=== PATIENT | male | born 1980 | race Caucasian/White ===

== ENCOUNTER 2022-12-24 14:26 | Inpatient (IN) ==
[2022-12-24] MEDS ORDERED: IOPAMIDOL 100 ML BOTTLE IV ONE (14:27)
[2022-12-24] MEDS ORDERED: DILTIAZEM 25 MG/5 ML VIAL IV ONE (14:43)
[2022-12-24 14:44] LABS: POC Calcium, Ionized 1.21 (1.16-1.32); POC Creatinine 1.1 (0.6-1.2); POC Potassium 4.8 (3.3-5.1)
[2022-12-24] MEDS ORDERED: 0.9 % SODIUM CHLORIDE 1,000 ML IV ONE (14:44)
[2022-12-24] MEDS ORDERED: ASPIRIN 81 MG TAB.CHEW CHEWED ONE (14:45)
[2022-12-24 15:15] LABS: Basophils # (Auto) 0.03 K/mcL (0.00-0.30); Basophils % (Auto) 0.3 % (0.0-2.0); Eosinophils # (Auto) 0.09 K/mcL (0.00-0.70); Hematocrit 41.7 % (40.1-51.0); Hemoglobin 13.9 g/dL (13.7-17.5); Lymphocytes # (Auto) 2.11 K/mcL (1.50-4.80); Lymphocytes % (Auto) 23.3 % (15.5-49.0); Mean Cell Volume 92.1 fL (80.0-100.0); Mean Corpuscular HGB Conc 33.3 g/dL (31.0-36.0); Monocytes # (Auto) 0.55 K/mcL (0.10-0.90); Monocytes % (Auto) 6.1 % (1.0-12.0); Neutrophils % (Auto) 68.9 % (38.0-78.0); Platelet Count 372 K/mcL (140-440); RBC 4.53 M/mcL (4.63-6.08); Red Cell Distribution Width 13.2 % (11.5-14.5); WBC 9.1 K/mcL (4.5-11.0)
[2022-12-24] MEDS ORDERED: METOPROLOL TARTRATE 5 MG/5 ML VIAL IV ONE (15:26)
[2022-12-24 16:03] LABS: ALT/SGPT 61 U/L (<40); AST/SGOT 35 U/L (<40); Albumin 3.6 gm/dL (3.2-5.2); Albumin/Globulin Ratio 1.6 (1.0-2.3); Alkaline Phosphatase 163 U/L (39-117); Bilirubin,Total 0.5 mg/dL (0.1-1.0); Blood Urea Nitrogen 13 mg/dL (6-20); Calcium 9.2 mg/dL (8.6-10.4); Carbon Dioxide 25 mmol/L (22-30); Chloride 106 mmol/L (96-108); Globulin 2.3 gm/dL (2.2-3.7); Glomerular Filtration Rate 94; Glucose 95 mg/dL (70-105)
[2022-12-24] MEDS ORDERED: METOPROLOL TARTRATE 50 MG TABLET PO ONE (16:54)
[2022-12-24] MEDS ORDERED: FUROSEMIDE 20 MG/2 ML VIAL IV ONE (17:42)
[2022-12-24] MEDS ORDERED: KETOROLAC 15 MG/ML VIAL IV ONE (19:18)
[2022-12-24] MEDS ORDERED: LACTULOSE 20 GM/30 ML ORAL.SOL PO PRN (20:10)
[2022-12-24] MEDS ORDERED: IPRATROPIUM/ALBUTEROL 3 ML AMPUL.NEB NEB PRN (20:10)
[2022-12-24] MEDS ORDERED: guaiFENesin/DEXTROMETHORPHAN 5ML UD CUP PO PRN (20:10)
[2022-12-24] MEDS ORDERED: SENNOSIDES 1 TABLET PO PRN (20:10)
[2022-12-24] MEDS ORDERED: ONDANSETRON 4 MG/2 ML VIAL IV PRN (20:10)
[2022-12-24] MEDS: DOCUSATE SODIUM 100 MG CAPSULE PO SCH (20:54)
[2022-12-24] MEDS: METOPROLOL TARTRATE 5 MG/5 ML VIAL IV PRN (20:55)
[2022-12-24] MEDS: APIXABAN 5 MG TABLET PO SCH (20:55)
[2022-12-24] MEDS: 0.9 % SODIUM CHLORIDE 10 ML SYRINGE IV SCH (20:55)
[2022-12-24] MEDS: ACETAMINOPHEN 325 MG TABLET PO PRN (21:35)
[2022-12-25] MEDS: METOPROLOL TARTRATE 5 MG/5 ML VIAL IV PRN ×2 (01:05→04:16)
[2022-12-25] MEDS: 0.9 % SODIUM CHLORIDE 10 ML SYRINGE IV SCH ×3 (04:18→21:05)
[2022-12-25] MEDS ORDERED: FUROSEMIDE 40 MG/4 ML VIAL IV ONE (05:32)
[2022-12-25] MEDS: FUROSEMIDE 40 MG/4 ML VIAL IV SCH ×3 (05:35→16:12)
[2022-12-25] MEDS ORDERED: CARVEDILOL 6.25 MG TABLET ONE (05:38)
[2022-12-25] MEDS ORDERED: POTASSIUM CHLORIDE 20 MEQ PACKET ONE (05:39)
[2022-12-25] MEDS ORDERED: POTASSIUM CHLORIDE 20 MEQ TABLET PO ONE (05:40)
[2022-12-25] MEDS: POTASSIUM CHLORIDE 20 MEQ TABLET PO SCH ×2 (05:41→06:43)
[2022-12-25] MEDS ORDERED: CARVEDILOL 6.25 MG TABLET PO ONE (05:48)
[2022-12-25 05:49] LABS: Basophils # (Auto) 0.07 K/mcL (0.00-0.30); Basophils % (Auto) 0.5 % (0.0-2.0); Eosinophils % (Auto) 0.7 % (0.0-7.0); Hematocrit 45.3 % (40.1-51.0); Hemoglobin 14.6 g/dL (13.7-17.5); Lymphocytes # (Auto) 2.35 K/mcL (1.50-4.80); Lymphocytes % (Auto) 16.7 % (15.5-49.0); Mean Corpuscular HGB Conc 32.2 g/dL (31.0-36.0); Mean Platelet Volume 10.1 fL (8.8-12.5); Monocytes # (Auto) 0.68 K/mcL (0.10-0.90); Monocytes % (Auto) 4.8 % (1.0-12.0); Neutrophils % (Auto) 76.9 % (38.0-78.0); Platelet Count 406 K/mcL (140-440); RBC 4.77 M/mcL (4.63-6.08); Red Cell Distribution Width 13.4 % (11.5-14.5); WBC 14.1 K/mcL (4.5-11.0)
[2022-12-25 06:16] LABS: ALT/SGPT 53 U/L (<40); AST/SGOT 32 U/L (<40); Albumin 3.5 gm/dL (3.2-5.2); Albumin/Globulin Ratio 1.5 (1.0-2.3); Alkaline Phosphatase 160 U/L (39-117); Bilirubin,Total 0.5 mg/dL (0.1-1.0); Blood Urea Nitrogen 19 mg/dL (6-20); Calcium 9.1 mg/dL (8.6-10.4); Carbon Dioxide 24 mmol/L (22-30); Chloride 109 mmol/L (96-108); Globulin 2.4 gm/dL (2.2-3.7); Glomerular Filtration Rate 75; Glucose 112 mg/dL (70-105)
[2022-12-25] MEDS ORDERED: CARVEDILOL 12.5 MG TABLET PO SCH (08:00)
[2022-12-25] MEDS: LISINOPRIL 5 MG TABLET PO SCH (09:14)
[2022-12-25] MEDS: AZITHROMYCIN 250 MG TABLET PO SCH (09:14)
[2022-12-25] MEDS: APIXABAN 5 MG TABLET PO SCH ×2 (09:14→21:05)
[2022-12-25] MEDS: DOCUSATE SODIUM 100 MG CAPSULE PO SCH ×2 (09:14→20:16)
[2022-12-25] MEDS: METOPROLOL SUCCINATE 50 MG TAB.XL.24H PO SCH (11:17)
[2022-12-25] MEDS: ETHYL ALCOHOL 30 ML ORAL.SOL PO PRN ×3 (11:20→19:38)
[2022-12-25] MEDS: NICOTINE 21 MG PATCH TOPICAL SCH (11:21)
[2022-12-25 13:10] LABS: Amphetamine Screen,Urine Suspect positive; Barbiturate Screen,Urine None detected; Benzodiazepines Screen,Urine None detected; Cannabinoid Screen,Urine Suspect Positive; Cocaine Screen,Urine None detected; Opiate Screen,Urine None detected; Oxycodone, Urine Screen None detected; Phencyclidine Screen,Urine None detected
[2022-12-25] MEDS ORDERED: METOPROLOL TARTRATE 5 MG/5 ML VIAL IV PRN ×2 (14:29→14:30)
[2022-12-25] MEDS: ACETAMINOPHEN 325 MG TABLET PO PRN ×2 (14:38→23:02)
[2022-12-26] MEDS ORDERED: METOPROLOL TARTRATE 5 MG/5 ML VIAL IV PRN (00:06)
[2022-12-26] MEDS ORDERED: METOPROLOL TARTRATE 5 MG/5 ML VIAL IV ONE (00:10)
[2022-12-26] MEDS: 0.9 % SODIUM CHLORIDE 10 ML SYRINGE IV SCH ×3 (05:25→20:14)
[2022-12-26 06:20] LABS: Basophils # (Auto) 0.04 K/mcL (0.00-0.30); Basophils % (Auto) 0.3 % (0.0-2.0); Eosinophils # (Auto) 0.14 K/mcL (0.00-0.70); Eosinophils % (Auto) 1.2 % (0.0-7.0); Hematocrit 41.2 % (40.1-51.0); Hemoglobin 13.4 g/dL (13.7-17.5); Lymphocytes # (Auto) 2.59 K/mcL (1.50-4.80); Lymphocytes % (Auto) 22.4 % (15.5-49.0); Mean Cell Volume 92.8 fL (80.0-100.0); Mean Corpuscular HGB Conc 32.5 g/dL (31.0-36.0); Mean Platelet Volume 10.5 fL (8.8-12.5); Monocytes # (Auto) 0.69 K/mcL (0.10-0.90); Neutrophils % (Auto) 69.8 % (38.0-78.0); Platelet Count 333 K/mcL (140-440); RBC 4.44 M/mcL (4.63-6.08); Red Cell Distribution Width 13.4 % (11.5-14.5); WBC 11.6 K/mcL (4.5-11.0)
[2022-12-26 06:43] LABS: ALT/SGPT 36 U/L (<40); AST/SGOT 26 U/L (<40); Albumin 3.1 gm/dL (3.2-5.2); Albumin/Globulin Ratio 1.4 (1.0-2.3); Alkaline Phosphatase 130 U/L (39-117); Bilirubin,Total 0.5 mg/dL (0.1-1.0); Blood Urea Nitrogen 16 mg/dL (6-20); Calcium 8.4 mg/dL (8.6-10.4); Carbon Dioxide 25 mmol/L (22-30); Chloride 104 mmol/L (96-108); Globulin 2.2 gm/dL (2.2-3.7); Glomerular Filtration Rate 94; Glucose 112 mg/dL (70-105)
[2022-12-26] MEDS: LISINOPRIL 5 MG TABLET PO SCH (08:42)
[2022-12-26] MEDS: APIXABAN 5 MG TABLET PO SCH ×2 (08:42→20:14)
[2022-12-26] MEDS: AZITHROMYCIN 250 MG TABLET PO SCH (08:43)
[2022-12-26] MEDS: METOPROLOL SUCCINATE 50 MG TAB.XL.24H PO SCH (08:44)
[2022-12-26] MEDS: ACETAMINOPHEN 325 MG TABLET PO PRN ×3 (08:45→19:27)
[2022-12-26] MEDS: POTASSIUM CHLORIDE 20 MEQ TABLET PO SCH (08:46)
[2022-12-26] MEDS: NICOTINE 21 MG PATCH TOPICAL SCH (08:47)
[2022-12-26] MEDS: FUROSEMIDE 40 MG/4 ML VIAL IV SCH (08:47)
[2022-12-26] MEDS: DOCUSATE SODIUM 100 MG CAPSULE PO SCH ×2 (08:48→20:14)
[2022-12-26] MEDS: DILTIAZEM 30 MG TABLET PO SCH ×3 (11:53→20:14)
[2022-12-26] MEDS: ETHYL ALCOHOL 30 ML ORAL.SOL PO PRN ×2 (13:28→15:17)
[2022-12-26] MEDS ORDERED: BENZOCAINE ONE 20% 1 SPRAY TOPICAL PRN (15:23)
[2022-12-26] MEDS ORDERED: ETHYL ALCOHOL 30 ML ORAL.SOL PO PRN ×2 (15:30→23:30)
[2022-12-26] MEDS: FUROSEMIDE 40 MG TABLET PO SCH (16:11)
[2022-12-26] MEDS ORDERED: IBUPROFEN 600 MG TABLET PO PRN (19:43)
[2022-12-27] MEDS: ACETAMINOPHEN 325 MG TABLET PO PRN (03:45)
[2022-12-27] MEDS: 0.9 % SODIUM CHLORIDE 10 ML SYRINGE IV SCH ×2 (03:46→05:57)
[2022-12-27 06:10] LABS: Basophils # (Auto) 0.06 K/mcL (0.00-0.30); Basophils % (Auto) 0.5 % (0.0-2.0); Eosinophils # (Auto) 0.22 K/mcL (0.00-0.70); Hematocrit 42.1 % (40.1-51.0); Lymphocytes # (Auto) 3.34 K/mcL (1.50-4.80); Lymphocytes % (Auto) 30.1 % (15.5-49.0); Mean Cell Volume 90.3 fL (80.0-100.0); Mean Corpuscular HGB Conc 33.3 g/dL (31.0-36.0); Mean Platelet Volume 10.5 fL (8.8-12.5); Monocytes # (Auto) 0.81 K/mcL (0.10-0.90); Monocytes % (Auto) 7.3 % (1.0-12.0); Neutrophils % (Auto) 59.7 % (38.0-78.0); Platelet Count 352 K/mcL (140-440); RBC 4.66 M/mcL (4.63-6.08); Red Cell Distribution Width 13.2 % (11.5-14.5); WBC 11.1 K/mcL (4.5-11.0)
[2022-12-27 06:33] LABS: ALT/SGPT 30 U/L (<40); AST/SGOT 14 U/L (<40); Albumin 3.5 gm/dL (3.2-5.2); Albumin/Globulin Ratio 1.5 (1.0-2.3); Alkaline Phosphatase 133 U/L (39-117); Bilirubin,Total 0.5 mg/dL (0.1-1.0); Blood Urea Nitrogen 16 mg/dL (6-20); Carbon Dioxide 27 mmol/L (22-30); Chloride 101 mmol/L (96-108); Globulin 2.3 gm/dL (2.2-3.7); Glomerular Filtration Rate 94; Glucose 101 mg/dL (70-105)
[2022-12-27] MEDS: METOPROLOL SUCCINATE 50 MG TAB.XL.24H PO SCH (08:00)
[2022-12-27] MEDS: LISINOPRIL 5 MG TABLET PO SCH (08:00)
[2022-12-27] MEDS: FUROSEMIDE 40 MG TABLET PO SCH (08:00)
[2022-12-27] MEDS: APIXABAN 5 MG TABLET PO SCH (08:00)
[2022-12-27] MEDS: DOCUSATE SODIUM 100 MG CAPSULE PO SCH (08:01)
[2022-12-27] MEDS: AZITHROMYCIN 250 MG TABLET PO SCH (08:01)
[2022-12-27] MEDS: DILTIAZEM 30 MG TABLET PO SCH (08:01)
[2022-12-27] MEDS: POTASSIUM CHLORIDE 20 MEQ TABLET PO SCH (08:01)
[2022-12-27] MEDS ORDERED: SPIRONOLACTONE 25 MG TABLET PO SCH (09:00)
[2022-12-30 16:00] LABS: Cannabinoid Confirmation Positive
== END 2022-12-27 09:30 | disposition home or self-care (01) | DRG 291 ==
LOC: ED 14:26 → ICU 14:26
PROVIDERS: ADMIT Internal Medicine; ATTEND Internal Medicine